=== PATIENT | female | born 2000 | race Caucasian/White ===

== ENCOUNTER 2020-11-01 15:29 | Emergency (ER) | payer OTHER ==
--- NOTE | 2020-11-01 15:38 | ERPHSYRPT ---
- History of Present Illness Time Seen by Provider: 11/01/20 15:38 Source: patient Exam Limitations: no limitations Physician History: This is a 20-year-old overweight white female who presents with left side facial drooping as well as inability to completely close her left eyelid. She noticed this about 3 days ago. She has no significant pain. She did not have any flulike symptoms that she recalls prior to these symptoms. Other than these 2 findings she states that she feels pretty well. Timing/Duration: day(s) (3) Severity: mild Associated Symptoms: denies symptoms Allergies/Adverse Reactions: No Known Drug Allergies Allergy (Verified 11/01/20 16:07) Home Medications: Methocarbamol 500 mg [Robaxin 500 MG] 500 mg PO HS 11/01/20 [History] Travel Risk - International Travel Have you traveled outside of the country in past 3 weeks: No - Coronavirus Screening Are you exhibiting any of the following symptoms?: No Close contact with a COVID-19 positive Pt in past 14-21 Days: No - Review of Systems Constitutional: No Symptoms Eyes: Other (Inability to close her left eyelid completely) Ears, Nose, & Throat: Other (Left facial droop) Respiratory: No Symptoms Cardiac: No Symptoms Abdominal/Gastrointestinal: No Symptoms Genitourinary Symptoms: No Symptoms Musculoskeletal: No Symptoms Skin: No Symptoms Neurological: No Symptoms Psychological: No Symptoms Endocrine: No Symptoms Hematologic/Lymphatic: No Symptoms Immunological/Allergic: No Symptoms All Other Systems: Reviewed and Negative - Past Medical History Pertinent Past Medical History: Yes Neurological History: No Pertinent History Cardiac History: No Pertinent History Respiratory History: No Pertinent History Endocrine Medical History: No Pertinent History Musculoskeletal History: No Pertinent History GI Medical History: No Pertinent History History: No Pertinent History Psycho-Social History: No Pertinent History Female Reproductive Disorders: No Pertinent History - Past Surgical History Past Surgical History: Yes - Nursing Vital Signs Nursing Vital Signs: Initial Vital Signs Temperature 98.9 F 11/01/20 15:55 Pulse Rate 74 11/01/20 15:55 Blood Pressure 122/94 11/01/20 15:55 O2 Sat by Pulse Oximetry 98 11/01/20 15:55 Pain Scale Pain Intensity 0 - Physical Exam General Appearance: no apparent distress, alert, anxiety, obese Eye Exam: PERRL/EOMI, other (Left eyelid does not close completely) Ears, Nose, Throat Exam: normal ENT inspection, moist mucous membranes, other (Left side facial droop tongue is midline) Neck Exam: normal inspection, non-tender, supple, full range of motion Respiratory Exam: normal breath sounds, lungs clear, airway intact, No chest tenderness, No respiratory distress Cardiovascular Exam: regular rate/rhythm, normal heart sounds, normal peripheral pulses Gastrointestinal/Abdomen Exam: soft, normal bowel sounds, No tenderness Pelvic Exam: not done Rectal Exam: not done Back Exam: normal inspection, normal range of motion, No CVA tenderness, No vertebral tenderness Extremity Exam: normal inspection, normal range of motion, pelvis stable Neurologic Exam: alert, oriented x 3, cooperative, manager shell II-XII nml as tested, normal mood/affect, nml cerebellar function, nml station & gait, sensation nml, facial droop (Side), other (Tongue midline), No motor deficits, No sensory deficit, No disoriented, No confusion, No motor weakness, No slurred speech Skin Exam: normal color, warm, dry Lymphatic Exam: No adenopathy SpO2 Interpretation: normal O2 Delivery: Room Air - Course Nursing assessment & vital signs reviewed: Yes Ordered Tests: Active Orders 24 hr Category Date Time Status HEAD WITHOUT CONTRAST [CT] Stat Exams 11/01/20 16:24 Completed - Progress Progress: unchanged Progress Note: 11/01/20 16:57 Normal CAT scan of the head without contrast. - Departure Departure Disposition: Home Clinical Impression: Fowler's palsy Condition: Stable Critical Care Time: No Referrals: BONNIE FREED MD [Primary Care Provider] - Additional Instructions: Drink plenty of fluids. Follow-up with Dr. Freed's office for further m anagement. Take the medications as prescribed that is at your pharmacy. At nighttime, use moisturizing eyedrops/ointment in the left eye. Cover this left eye with a patch that you can purchase [id number] at the pharmacy. This will help keep your eye from drying out. Use Tylenol and ibuprofen as needed for pain control Prescriptions: Prednisone 10 mg [Deltasone 10 mg] 10 mg PO TID #12 tablet
[2020-11-01 16:07] VITALS: O2SAT 98
--- NOTE | 2020-11-01 16:49 | XRAY ---
Indication: Left facial droop 3 days. Multiple contiguous axial images obtained through the head without contrast. Comparison: None Normal appearing brain parenchyma, ventricles, and bony calvarium. Visualized paranasal sinuses and mastoid air cells are clear. Impression: Normal CT head without contrast exam.
[2020-11-01 17:12] VITALS: BP 137/85; PULSE 80
== END 2020-11-01 17:12 | disposition home or self-care (01) ==
LOC: ED 15:29
DX: G51.0 Bell's palsy (principal)
CPT/HCPCS: 70450; 99283

== ENCOUNTER 2023-03-06 06:31 | Day surgery (SDC) | payer OTHER ==
[2023-03-06] MEDS ORDERED: Lactated Ringers 1,000 ML IV SCH (07:00)
[2023-03-06] MEDS ORDERED: CEFAZOLIN 2 GM-D5W BAG** 2 GM/50 ML ML IV SCH (07:00)
[2023-03-06 07:22] VITALS: RESP 16
[2023-03-06] MEDS ORDERED: Versed 2 MG/2 ML Injection ONE (08:27)
[2023-03-06] MEDS ORDERED: SUBLIMAZE 100 MCG/2 ML ONE ×2 (08:27→09:59)
[2023-03-06] MEDS ORDERED: BRIDION 200MG/2ML IV ONE (08:27)
[2023-03-06] MEDS ORDERED: DIPRIVAN 200 MG/20 ML IV ONE (08:27)
[2023-03-06] MEDS ORDERED: Decadron 4 MG INJ ONE (08:27)
[2023-03-06] MEDS ORDERED: Zemuron 100 MG/10 ML ONE (08:27)
[2023-03-06] MEDS ORDERED: Xylocaine-Mpf 2% 5 Ml Vial ONE (08:27)
[2023-03-06] MEDS ORDERED: Zofran 4 MG/2 ML VIAL ONE (08:27)
[2023-03-06] MEDS ORDERED: TORAdol 30 mg Injection ONE (08:28)
[2023-03-06 09:04] LABS: HCG SERUM TEST NEGATIVE (NEGATIVE)
[2023-03-06] MEDS ORDERED: Lactated Ringers 1,000 ML IV ONE (09:30)
[2023-03-06 10:53] VITALS: O2SAT 98
[2023-03-06 11:01] VITALS: BP 111/82; PULSE 75; TEMP 97
--- NOTE | 2023-03-07 08:03 | OP ---
SURGERY DATE/TIME: 03/06/202307 PREOPERATIVE DIAGNOSIS: Left ovarian cyst. POSTOPERATIVE DIAGNOSIS: Simple left ovarian cyst. PROCEDURES: Laparoscopic left ovarian cystectomy. SURGEON: Reymundo Vargas D.O. LPN CMA: Diann Fatima chief technology officer. ANESTHESIA: General. ESTIMATED BLOOD LOSS: Minimal. COMPLICATIONS: None. INDICATIONS: The risks, benefits, indications and alternatives of the procedure were reviewed with the patient prior to procedure. The patient understood the risk of infection, bleeding, bowel injury, bladder injury, ureteral injury, uterine perforation, pelvic infection and thromboembolic disorder associated with this surgery and desires to have this surgery as a possible need to alleviate her current medical condition. DESCRIPTION OF PROCEDURE AND FINDINGS: At this point the patient is taken to the operating room and given general anesthesia and placed in a supine position where anesthesia was given without complication. At this point, a small incision is made in the umbilical region and a 5 mm trocar and sleeve were advanced under direct visualization where pneumoperitoneum was obtained with 4 liters CO2 gas. At this point an additional incision was made in the left middle quadrant region where a 5 mm trocar and sleeve were advanced under direct visualization and a third incision was made where an 8 mm incision and 8 mm trocar and sleeve were advanced under direct visualization approximately 2 cm above the symphysis pubis. The low pelvic region appeared to have a left ovarian cyst approximately 7 x 7 cm simple appearing cyst with no gross excrescences located on the surface of the ovary. From this point a J-loop monopolar instrument was then placed on the left ovarian cystic region and a circumferential incision was made where at this point a stab incision was made in through the cystic portion and the fluid was suctioned with the suction instrument. From this point LigaSure was then used and was used to separate the cystic portion from the ovarian tissue and was done so without complication and hemostasis was obtained. Significant amount of cystic region of the ovary was removed with LigaSure and there was minimal bleeding that was noted. The right ovary appeared to be within normal limits as well as the left fallopian tube. However after removal of the left ovarian cystic region, the left fallopian tube appeared to be distorted however appeared to be intact and the left ovary appeared to be intact after removal of the ovarian cyst however appeared to be distorted on the left side. From this point all the remaining pelvic organs appeared to be within normal limits. From this point all instruments were removed from the patients abdominal region and the incision was closed with 4-0 Monocryl suture. The patient was then taken out of anesthesia and was then taken to the recovery room in stable condition.
== END 2023-03-06 11:14 | disposition home or self-care (01) ==
LOC: SDC 06:31
PROVIDERS: ATTEND Obstetrics & Gynecology
DX: N83.202 Unspecified ovarian cyst, left side (principal)
CPT/HCPCS: 36415; 84703; 87086; J0690; J1100; J1885; J2250; J2405; J2704; J3010